=== PATIENT | male | born 1975 | race Caucasian/White ===

== ENCOUNTER 2017-06-11 13:03 | Emergency (ER) | payer MEDICAID ==
--- NOTE | 2017-06-11 13:43 | ED Physician Chart ---
ED Chief Complaint/HPI - Patient Information Date Seen:: 06/11/17 Time Seen:: 13:20 Chief Complaint:: Medical Clearance History of Present Illness:: pt brought to ER by PD for an OK to Book Medical Clearance; pt has no complaints ; pt denies recent trauma, H/As, neck pain, C/P, SOB, Abd/Flank/Back pain, urinary s/s, pelvic/hip pain, or gait changes Allergies:: Allergies Allergy/AdvReac Type Severity Reaction Status Date / Time Penicillins [PCN] AdvReac Verified 06/11/17 13:23 Vitals:: Vital Signs - 8 hr 06/11/17 06/11/17 13:23 13:31 Temp 98.2 F 98.2 F HR 90 89 RR 16 18 BP 110/62 116/62 O2 Sat % 100 98 Historian:: Patient Review:: Nurse's Note Reviewed ED Review of Systems - Review of Systems General/Constitutional: No fever, No chills, No weight loss, No weakness, No diaphoresis, No edema, No loss of appetite Skin: No skin lesions, No rash, No bruising Head: No headache, No light-headedness Eyes: No loss of vision, No pain, No diplopia ENT: No earache, No nasal drainage, No sore throat, No tinnitus Neck: No neck pain, No swelling, No thyromegaly, No stiffness, No mass noted Cardio Vascular: No chest pain, No palpitations, No PND, No orthopnea, No edema Pulmonary: No SOB, No cough, No sputum, No wheezing GI: No nausea, No vomiting, No diarrhea, No pain, No melena, No hematochezia, No constipation, No hematemesis G/U: No dysuria, No frequency, No hematuria Musculoskeletal: No bone or joint pain, No back pain, Muscle pain Endocrine: No polyuria, No polydipsia Psychiatric: No prior psych history, No depression, No anxiety, No suicidal ideation Hematopoietic: No bruising, No lymphadenopathy Allergic/Immuno: No urticaria, No angioedema Neurological: No syncope, No focal symptoms, No weakness, No paresthesia, No headache, No seizure, No dizziness, No confusion, No vertigo ED Past Medical History - Past Medical History Obtainable: Yes Past Medical History: No significant medical hx Family History: HTN Social History: Smoker, Alcohol, Illicit Drug Use, Single Surgical History: None Psychiatricy History: None Medication: Reviewed Family Medical History - Family Member Mother History Unknown: Yes ED Physical Exam - Physical Examination General/Constitutional: Awake, Well-developed, well-nourished, Alert, No distress, GCS 15, Non-toxic appearing, Ambulatory Head: Atraumatic Eyes: Lids, conjuctiva normal, PERRL, EOMI Skin: Nl inspection, No rash, No skin lesions, No ecchymosis, Well hydrated, No lymphadenopathy ENMT: External ears, nose nl, TM canals nl, Nasal exam nl, Lips, teeth, gums nl , Oropharynx nl, Tonsils nl Neck: Nontender, Full ROM w/o pain, No JVD, No nuchal rigidity, No bruit, No mass, No stridor Respiratory: Nl effort/Exclusion, Clear to Auscultation, No Wheeze/Rhonchi/Rales Cardio Vascular: RRR, No murmur, gallop, rubs, NL S1 S2 GI: No tenderness/rebounding/guarding, No organomegaly, No hernia, Normal BS's, Nondistended, No mass/bruits, No McBurney tenderness : No CVA tenderness Extremities: No tenderness or effusion, Full ROM, normal strength in all extremities, No edema, Normal digits & nails Neuro/Psych: Alert/oriented, DTR's symmetric, Normal sensory exam, Normal motor strength, Judgement/insight normal, Mood normal, Normal gait, No focal deficits Misc: Normal back, No paraspinal tenderness ED Septic Shock - . Is Septic Shock (SBP<90, OR Lactate>4 mmol\L) present?: No - <6hrs of presentation: Vital Signs: Vital Signs - 8 hr 06/11/17 06/11/17 13:23 13:31 Temp 98.2 F 98.2 F HR 90 89 RR 16 18 BP 110/62 116/62 O2 Sat % 100 98 ED Reassessment (Disposition) - Reassessment Reassessment:: pt is asymptomatic upon discharge Reassessment Condition:: Improved - Diagnosis Diagnosis:: OK to Book Medical Clearance - Aftercare/Follow up Instructions Aftercare/Follow-Up Instructions:: Counseled pt regarding lab results/diagnosis & need follow up, Refer to Discharge Instructions, Counseled pt & family regarding lab results/diagnosis & need follow up - Patient Disposition Discharge/Transfer:: [facility] Condition at Disposition:: Stable, Improved (RTER prn if existing s/s reoccur and/or get worse and/or any other new s/s occur; ACIs given for all above Dx; Refer to Psychology Tech RENAE; F/U with PMD in one day or prn; RTER prn if concerned) ED Discharge Plan - Patient Disposition Forms: [facility] Clearance
== END 2017-06-11 13:38 | disposition still patient (30) ==
LOC: ER 13:03
DX: Z02.89 Encounter for other administrative examinations (principal); F17.200 Nicotine dependence, unspecified, uncomplicated
CPT/HCPCS: Z7502

== ENCOUNTER 2017-11-02 20:40 | Emergency (ER) | payer SELFPAY ==
[2017-11-02] MEDS ORDERED: Sodium Chloride 0.9% 1,000 ML IV ONE (21:06)
[2017-11-02] MEDS ORDERED: cefTRIAXone 2 GM in Sodium Chloride 0.9% 100 ML IV ONE (21:10)
[2017-11-02 21:27] LABS: % BASOPHILS 0.3 % (0.0-2.0); % EOSINOPHILS 6.4 % (0.0-5.0); % MONOCYTES 7.6 % (2.0-10.0); % NEUTROPHILS 60.7 % (40.0-80.0); EOSINOPHILE ABSOLUTE 0.8 Th/cmm (0.1-0.4); HEMATOCRIT 49.9 % (41.0-60); HEMOGLOBIN 16.6 gm/dL (12-16); MEAN CELL VOLUME 88.2 fl (80-99); MEAN CORPUSCULAR HEMOGLOBIN 29.3 pg (26.0-30.0); MEAN CORPUSCULAR HGB CONC 33.3 pg (28.0-36.0); MEAN PLATELET VOLUME 7.2 fl; MONOCYTE ABSOLUTE 0.9 Th/cmm (0.3-1.0); NEUTROPHILE ABSOLUTE 7.1 Th/cmm (1.8-8.0); PLATELET COUNT 351 Th/cmm (150-400); RED BLOOD COUNT 5.65 Mil/cmm (4.30-5.70); RED CELL DISTRIBUTION WIDTH 12.9 % (11.5-20.0); WHITE BLOOD COUNT 11.8 Th/cmm (4.8-10.8)
[2017-11-02] MEDS ORDERED: metroNIDAZOLE 500mg/NS 100mL 500 MG/100 ML BAG IV ONE ×2 (21:28→22:21)
[2017-11-02] MEDS ORDERED: Pantoprazole 80 MG in Sodium Chloride 0.9% 100 ML IV ONE (21:29)
[2017-11-02 21:50] LABS: ALB/GLOB RATIO 1.5 (1.0-1.8); ALKALINE PHOSPHATASE 66 U/L (34-104); AMYLASE SERUM 21 U/L (29-103); ANION GAP 8.1 (7.0-16.0); BILIRUBIN,TOTAL 0.3 mg/dL (0.3-1.0); BUN - UREA NITROGEN 15 mg/dL (7-25); CALCIUM SERUM 9.5 mg/dL (8.6-10.3); CARBON DIOXIDE 28.3 mEq/L (21.0-31.0); CHLORIDE 101 mEq/L (98-107); CREATININE - SERUM 0.8 mg/dL (0.7-1.3); GFR AFRICAN-AMERICAN > 60.0 ml/min (>90); GFR NON AFRICAN-AMERICAN > 60.0 ml/min; GLUCOSE 153 mg/dL (70-105); LIPASE 39 U/L (11-82); MAGNESIUM 2.3 mg/dL (1.9-2.7); POTASSIUM SERUM 4.4 mEq/L (3.5-5.1); SGOT 19 U/L (13-39); SGPT/ALT 23 U/L (7-52); SODIUM SERUM 133 mEq/L (136-145); TOTAL PROTEIN,SERUM 6.6 gm/dL (6.0-8.3)
[2017-11-02] MEDS ORDERED: Acetaminophen 500 MG TAB PO ONE (23:17)
[2017-11-02] MEDS ORDERED: Acetaminophen 500 MG TAB ONE (23:46)
--- NOTE | 2017-11-03 00:29 | Transfer Summary ---
DATE OF TRANSFER: ADDENDUM CODE: Full code. A 41-year-old male patient who is in bed #1. We got the results of the lab; white count is slightly high 11.8, hemoglobin 16.6, hematocrit 49.9, platelet count is 351, neutrophils 60.7, lymphocytes is 25, and eosinophil is 64%. Electrolytes show sodium 133, potassium 4.4, chloride 101, carbon dioxide 28.3, BUN is 15, creatinine 0.8, and glucose 153. Magnesium is 2.3. Troponin and BNP, etc. are all within normal limits. Albumin is 4, globulin is normal. Amylase is 21 and lipase is 39. Ultrasound of the gallbladder and the bile duct are within normal limits. There is no thickening of the gallbladder seen. Gallbladder does not have any stones. I saw it, he is still doing it, but the classical findings is negative for acute cholecystitis, most likely the patient has acute gastritis, GERD and hence the patient can be sent home on p.o. antibiotics and the patient will be sent home on p.o. PPI medication and Tylenol for pain and not to take any Advil, Motrin, etc. FINAL DIAGNOSES: Epigastric pain and the reason for the epigastric pain in all probability is secondary to acute gastritis because the patient has been taking a lot of Aleve, a lot of Motrin, and has a lot of headaches from time to time. The other diagnosis that the patient has is back pain, ____ is allergic to PENICILLIN. The pain is almost gone at the present moment. We will give him prescription of all these medications: Protonix 40 mg p.o. twice a day. No Aleve and no Motrin to be taken. Tylenol for headache and pain. The patient needs to be taking Reglan 10 mg 3 times a day and a patient can take Pepto-Bismol 2-3 times a day and the patient does not have any acute cholecystitis. So for mild infection, we can give the patient some ampicillin capsule that is good for Helicobacter pylori. We can give the patient some Flagyl also, if there is any evidence of that, will help the patient also. JOB# [id number]
--- NOTE | 2017-11-03 08:33 | Diagnostic Imaging Report ---
Abdominal ultrasound HISTORY: Pain The exam of the liver demonstrates a slightly heterogeneous parenchyma. No focal lesions. Significance should be correlated with liver function test. There is a distended gallbladder. No intraluminal abnormalities. No definite calculi. No biliary dilatation. The pancreas cannot be seen due to bowel gas. An approximate 1.9 cm sonolucent lesion is noted in the upper pole of the right kidney consistent with a cyst. An approximate 2.8 cm sonolucent lesion is noted in the lower pole the left kidney consistent with a cyst. No hydronephrosis. No other retroperitoneal or intra-abdominal abnormalities. IMPRESSION: 1. Somewhat limited exam due to bowel gas 2. No acute abnormalities 3. Findings consistent with bilateral renal cysts.
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
== END 2017-11-03 00:45 | disposition home or self-care (01) ==
LOC: ER 20:40
DX: R10.13 Epigastric pain (principal); M54.5 Low back pain; K82.9 Disease of gallbladder, unspecified
CPT/HCPCS: 99285; 96365; 96368; 96372; 93005; 76700; 84484; 83880; 36415; 83605; 86141; 85025; 82150; 83690; 83735; 80053; 87040 ×2; C9113; J1885; J0696; 87086-90; 90799; J7030; Z7610

== ENCOUNTER 2018-02-10 06:21 | Emergency (ER) | payer SELFPAY ==
--- NOTE | 2018-02-10 08:39 | Diagnostic Imaging Report ---
Head CT without intravenous contrast Indication: Trauma Comparison: None Technique: Axial images were obtained from the vertex to the skull base without IV contrast. Coronal reconstructions were made. Total DLP: 682, CTDI33 FINDINGS: Images of the brain obtained without contrast demonstrate punctate high density seen along the right temporal region measuring 3 mm (image 18, series 2). The stewart-white matter differentiation is preserved. The ventricles and basal cisterns are patent. No mass effect or midline shift. No evidence of a skull fracture or focal soft tissue swelling. There is partial opacification left sphenoid sinus additional mucosal thickening of paranasal sinuses are also noted. IMPRESSION: 3 mm high density seen along the right temporal region. This is probably a calcification and may be due to choroid plexus calcifications. Otherwise no evidence of an acute hemorrhage. No evidence of a skull fracture. Mild sinus disease greatest within the left sphenoid sinus.
--- NOTE | 2018-02-10 08:42 | Diagnostic Imaging Report ---
CT cervical spine without IV contrast HISTORY: Trauma COMPARISON: None Technique: Axial images were obtained from the skull base to the upper thoracic spine without IV contrast. Multiplanar reconstructions were made. Total DLP: 722, CTDI44 FINDINGS: Images of the spine cervical spine obtained without contrast demonstrate no evidence of a fracture or subluxation. The disc spaces are preserved. Mild degenerative changes are seen greatest at C6/C7 with disc osteophytic spurring at this level including anterior and posterior disc osteophyte complexes causing mild spinal canal narrowing. No prevertebral soft tissue swelling. The lung apices are clear. IMPRESSION: No evidence of an acute fracture. Mild degenerative changes, greatest within the lower cervical spine.
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
== END 2018-02-10 09:27 | disposition home or self-care (01) ==
LOC: ER 06:21
DX: S42.002A Fracture of unspecified part of left clavicle, initial encounter for closed fracture (principal); S46.912A Strain of unspecified muscle, fascia and tendon at shoulder and upper arm level, left arm, initial encounter; S16.1XXA Strain of muscle, fascia and tendon at neck level, initial encounter; I10 Essential (primary) hypertension; Z88.0 Allergy status to penicillin; V29.9XXA Motorcycle rider (driver) (passenger) injured in unspecified traffic accident, initial encounter; Y93.55 Activity, bike riding; Y92.410 Unspecified street and highway as the place of occurrence of the external cause; Y99.8 Other external cause status
CPT/HCPCS: 70450-TC; 72125-TC; 73000-TC-LT; 73030-TC-LT; Z7502

== ENCOUNTER 2019-04-06 16:30 | Emergency (ER) | payer MEDICAID ==
--- NOTE | 2019-04-06 18:32 | ED Physician Chart ---
ED Chief Complaint/HPI - Patient Information Date Seen:: 04/06/19 Time Seen:: 16:40 Chief Complaint:: Headaches History of Present Illness:: onset x one month of intermittent, dull, frontal and parietal H/As; no report of /pt denies trauma, LOC, ALOC, AMS, decreased activity, visual or gait changes, weakness, dizziness, paresthesias, vertigo, E/A, S/T, neck pain, SIs, C/P, SOB, Abd. Pain, A/N/V/D/C, fever, chills, or urinary s/s; pt is eating and urinating well; pt last urinated one hour [employer]; pt tried no pain medications Allergies:: Allergies Allergy/AdvReac Type Severity Reaction Status Date / Time Penicillins [PCN] AdvReac Verified 02/10/18 06:30 Vitals:: Vital Signs - 8 hr 04/06/19 04/06/19 16:40 18:20 Temp 97.7 F 97.8 F HR 81 81 RR 17 14 BP 137/64 111/69 O2 Sat % 95 96 Historian:: Patient, Family Member Review:: Nurse's Note Reviewed, Old Chart Reviewed ED Review of Systems - Review of Systems General/Constitutional: No fever, No chills, No weight loss, No weakness, No diaphoresis, No edema, No loss of appetite Skin: No skin lesions, No rash, No bruising Head: Headache, No light-headedness Eyes: No loss of vision, No pain, No diplopia ENT: No earache, No nasal drainage, No sore throat, No tinnitus Neck: No neck pain, No swelling, No thyromegaly, No stiffness, No mass noted Cardio Vascular: No chest pain, No palpitations, No PND, No orthopnea, No edema Pulmonary: No SOB, No cough, No sputum, No wheezing GI: No nausea, No vomiting, No diarrhea, No pain, No melena, No hematochezia, No constipation, No hematemesis G/U: No dysuria, No frequency, No hematuria, No nacturia Musculoskeletal: No bone or joint pain, No back pain, No muscle pain Endocrine: No polyuria, No polydipsia Psychiatric: Prior psych history, No depression, Anxiety, No suicidal ideation, No homicidal ideation, No auditory hallucination, No visual hallucination Hematopoietic: No bruising, No lymphadenopathy Allergic/Immuno: No urticaria, No angioedema Neurological: No syncope, No focal symptoms, No weakness, No paresthesia, Headache, No seizure, No dizziness, No confusion, No vertigo ED Past Medical History - Past Medical History Obtainable: Yes Past Medical History: No significant medical hx Family History: None Social History: Non Smoker, No Alcohol, No Drug Use, Surgical History: None Psychiatricy History: Other (Anxiety) Medication: Reviewed Family Medical History - Family Member Mother History Unknown: Yes ED Physical Exam - Physical Examination General/Constitutional: Awake, Well-developed, well-nourished, Alert, No distress, GCS 15, Non-toxic appearing, Ambulatory Head: Atraumatic Eyes: Lids, conjuctiva normal, PERRL, EOMI Other Eyes comments:: PERRLA; Fundi: benign; EOMs: WNL Skin: Nl inspection, No rash, No skin lesions, No ecchymosis, Well hydrated, No lymphadenopathy ENMT: External ears, nose nl, TM canals nl, Nasal exam nl, Lips, teeth, gums nl , Oropharynx nl, Tonsils nl Other ENMT comments:: TMJs: WNL Neck: Nontender, Full ROM w/o pain, No JVD, No nuchal rigidity, No bruit, No mass, No stridor Other Neck comments:: supple; no meningeal signs; no cervical tenderness; no bruits Respiratory: Nl effort/Exclusion, Clear to Auscultation, No Wheeze/Rhonchi/Rales Cardio Vascular: RRR, No murmur, gallop, rubs, NL S1 S2, Carotid/Femoral/Distal pulses equal bilaterally GI: No tenderness/rebounding/guarding, No organomegaly, No hernia, Normal BS's, Nondistended, No mass/bruits, No McBurney tenderness, Rectum exam nl Other GI comments:: no pulsatile masses : No CVA tenderness Extremities: No tenderness or effusion, Full ROM, normal strength in all extremities, No edema, Normal digits & nails Neuro/Psych: Alert/oriented, DTR's symmetric, Normal sensory exam, Normal motor strength, Judgement/insight normal, Mood normal, Normal gait, No focal deficits Other Neuro/Psych comments:: no focal signs Misc: Normal back, No paraspinal tenderness ED Labs/Radiology/EKG Results - Radiology Results Comments:: NAD ED Septic Shock - . Is Septic Shock (SBP<90, OR Lactate>4 mmol\L) present?: No - <6hrs of presentation: Vital Signs: Vital Signs - 8 hr 04/06/19 04/06/19 16:40 18:20 Temp 97.7 F 97.8 F HR 81 81 RR 17 14 BP 137/64 111/69 O2 Sat % 95 96 ED Reassessment (Disposition) - Reassessment Reassessment:: pt tolerated po fluids well in ER; pt is asymptomatic upon discharge Reassessment Condition:: Improved - Diagnosis Diagnosis:: Headaches; Vascular Cephalgia; Anxiety; Tension Headaches; Benign Headaches - Aftercare/Follow up Instructions Aftercare/Follow-Up Instructions:: Counseled pt regarding lab results/diagnosis & need follow up, Refer to Discharge Instructions, Counseled pt & family regarding lab results/diagnosis & need follow up - Patient Disposition Discharge/Transfer:: Home Condition at Disposition:: Stable, Improved (X-Rays Instructions; RTER prn if existing s/s reoccur and/or get worse and/or any other new s/s occur; ACIs given for all above Dx; Refer to Neurologist/Psychiatrist/Dynamo Repairer RENAE; F/U with PMD in one day or prn; RTER prn if concerned)
--- NOTE | 2019-04-07 09:34 | Diagnostic Imaging Report ---
Head CT without intravenous contrast Indication: Headache Comparison: Head CT on 02/10/2018 Technique: Axial images were obtained from the vertex to the skull base without IV contrast. Coronal reconstructions were made. Total DLP: 789, CTDI40 FINDINGS: Images of the brain obtained without contrast demonstrate no acute hemorrhage. No mass lesions identified. The ventricles and basal cisterns are patent. The stewart-white matter differentiation is preserved. There is no mass effect or midline shift. No skull fractures identified. No soft tissue swelling. There is mucosal thickening of the paranasal sinuses. IMPRESSION: No acute intracranial abnormality.
== END 2019-04-06 18:25 | disposition home or self-care (01) ==
LOC: ER 16:30
DX: G44.1 Vascular headache, not elsewhere classified (principal); F41.9 Anxiety disorder, unspecified; G44.209 Tension-type headache, unspecified, not intractable; Z88.0 Allergy status to penicillin
CPT/HCPCS: 70450-TC

== ENCOUNTER 2019-05-01 23:34 | Emergency (ER) | payer MEDICAID ==
[2019-05-02 00:20] LABS: % BASOPHILS 0.3 % (0.0-2.0); % EOSINOPHILS 4.5 % (0.0-5.0); % LYMPHOCYTES 32.7 % (20.0-50.0); % MONOCYTES 6.2 % (2.0-10.0); % NEUTROPHILS 56.3 % (40.0-80.0); EOSINOPHILE ABSOLUTE 0.5 Th/cmm (0.1-0.4); HEMATOCRIT 47.8 % (41.0-60); HEMOGLOBIN 16.6 gm/dL (12-16); LYMPHOCYTE ABSOLUTE 3.9 Th/cmm (1.5-3.0); MEAN CELL VOLUME 86.7 fl (80-99); MEAN CORPUSCULAR HEMOGLOBIN 30.1 pg (26.0-30.0); MEAN CORPUSCULAR HGB CONC 34.7 pg (28.0-36.0); MONOCYTE ABSOLUTE 0.7 Th/cmm (0.3-1.0); NEUTROPHILE ABSOLUTE 6.9 Th/cmm (1.8-8.0); PLATELET COUNT 364 Th/cmm (150-400); RED BLOOD COUNT 5.51 Mil/cmm (4.30-5.70); RED CELL DISTRIBUTION WIDTH 12.4 % (11.5-20.0)
--- NOTE | 2019-05-02 00:28 | ED Physician Chart ---
ED Chief Complaint/HPI - Patient Information Date Seen:: 05/02/19 Time Seen:: 00:17 Chief Complaint:: right sided abdominal pain History of Present Illness:: this is a 43 yo male who is concerned about pain in his right upper quadrant abdominal pain for one week. he denies nausea, vomiting and diarrhea. he denies fever, chills, sweats and blood in his urine. he states that he had a bout of renal stones in the past. he denies having a problem with his gallbladder. he denies having a pancreas problem. he denies alcohol and drug abuse. he had pneumonia about 20 yrs ago. the pain is 5/10 wirse with coughing and moving around. Allergies:: Allergies Allergy/AdvReac Type Severity Reaction Status Date / Time Penicillins [PCN] AdvReac Verified 02/10/18 06:30 Vitals:: Vital Signs - 8 hr 05/01/19 23:40 Temp 98.7 F HR 91 RR 18 BP 138/88 O2 Sat % 96 Historian:: Patient Review:: Nurse's Note Reviewed, Old Chart Reviewed ED Review of Systems - Review of Systems General/Constitutional: No fever, No chills, No weight loss, No weakness, No diaphoresis, No edema, No loss of appetite Skin: No skin lesions, No rash, No bruising Head: No headache, No light-headedness Eyes: No loss of vision, No pain, No diplopia ENT: No earache, No nasal drainage, No sore throat, No tinnitus Neck: No neck pain, No swelling, No thyromegaly, No stiffness, No mass noted Cardio Vascular: No chest pain, No palpitations, No PND, No orthopnea, No edema Pulmonary: No SOB, No cough, No sputum, No wheezing GI: No nausea, No vomiting, No diarrhea, Pain (right upper quadrant abdominal pain), No melena, No hematochezia, No constipation, No hematemesis G/U: No dysuria, No frequency, No hematuria Musculoskeletal: No bone or joint pain, No back pain, No muscle pain Endocrine: No polyuria, No polydipsia Psychiatric: No prior psych history, No depression, No anxiety, No suicidal ideation Hematopoietic: No bruising, No lymphadenopathy Allergic/Immuno: No urticaria, No angioedema Neurological: No syncope, No focal symptoms, No weakness, No paresthesia, No headache, No seizure, No dizziness, No confusion, No vertigo ED Past Medical History - Past Medical History Obtainable: Yes Past Medical History: HTN, Other (prostate problem, gastritis) Family History: None Social History: Non Smoker, No Alcohol, No Drug Use, Single Surgical History: None Psychiatricy History: None Medication: Reviewed Family Medical History - Family Member Mother History Unknown: Yes ED Physical Exam - Physical Examination General/Constitutional: Awake, Well-developed, well-nourished, Alert, No distress, GCS 15, Non-toxic appearing, Ambulatory Head: Atraumatic Eyes: Lids, conjuctiva normal, PERRL, EOMI Skin: Nl inspection, No rash, No skin lesions, No ecchymosis, Well hydrated, No lymphadenopathy ENMT: External ears, nose nl, Nasal exam nl, Lips, teeth, gums nl Neck: Nontender, Full ROM w/o pain, No JVD, No nuchal rigidity, No bruit, No mass, No stridor Respiratory: Nl effort/Exclusion, Clear to Auscultation, No Wheeze/Rhonchi/Rales Cardio Vascular: RRR, No murmur, gallop, rubs, NL S1 S2 GI: No organomegaly, No hernia, Normal BS's, Nondistended, No mass/bruits, No McBurney tenderness Other GI comments:: the abdomen is distended and tender in the right lower quadrant. : No CVA tenderness Extremities: No tenderness or effusion, Full ROM, normal strength in all extremities, No edema, Normal digits & nails Neuro/Psych: Alert/oriented, DTR's symmetric, Normal sensory exam, Normal motor strength, Judgement/insight normal, Mood normal, Normal gait, No focal deficits Misc: Normal back, No paraspinal tenderness ED Labs/Radiology/EKG Results - Lab Results Results: Laboratory Results - last 24 hr 05/01/19 05/01/19 05/02/19 00:05 00:05 00:07 WBC 12.0 H RBC 5.51 Hgb 16.6 Hct 47.8 MCV 86.7 MCH 30.1 H MCHC Differential 34.7 RDW 12.4 Plt Count 364 MPV 7.4 Neutrophils % 56.3 Lymphocytes % 32.7 Monocytes % 6.2 Eosinophils % 4.5 Basophils % 0.3 Sodium 138 Potassium 3.7 Chloride 104 Carbon Dioxide 23.2 Anion Gap 14.5 BUN 15 Creatinine 0.9 Est GFR ( Amer) > 60.0 Est GFR (Non-Af Amer) > 60.0 BUN/Creatinine Ratio 16.7 Glucose 160 H Calcium 8.7 Total Bilirubin 0.4 AST 17 ALT 26 Alkaline Phosphatase 87 Troponin I < 0.01 L Total Protein 6.9 Albumin 4.2 Globulin 2.7 Albumin/Globulin Ratio 1.6 Amylase 18 L - Radiology Results Results: ct scan of the abdomen = nad ED Assessment - Assessment General Assessment: gastritis ED Septic Shock - . Is Septic Shock (SBP<90, OR Lactate>4 mmol\L) present?: No - <6hrs of presentation: Vital Signs: Vital Signs - 8 hr 05/01/19 23:40 Temp 98.7 F HR 91 RR 18 BP 138/88 O2 Sat % 96 ED Reassessment (Disposition) - Reassessment Reassessment Condition:: Improved - Diagnosis Diagnosis:: gastritis - Aftercare/Follow up Instructions Aftercare/Follow-Up Instructions:: Counseled pt regarding lab results/diagnosis & need follow up, Refer to Discharge Instructions, Counseled pt & family regarding lab results/diagnosis & need follow up - Patient Disposition Discharge/Transfer:: Home Condition at Disposition:: Improved
[2019-05-02 00:36] LABS: ALB/GLOB RATIO 1.6 (1.0-1.8); ALBUMIN 4.2 gm/dL (4.2-5.5); ALKALINE PHOSPHATASE 87 U/L (34-104); AMYLASE SERUM 18 U/L (29-103); ANION GAP 14.5 (7.0-16.0); BILIRUBIN,TOTAL 0.4 mg/dL (0.3-1.0); BUN - UREA NITROGEN 15 mg/dL (7-25); CALCIUM SERUM 8.7 mg/dL (8.6-10.3); CARBON DIOXIDE 23.2 mEq/L (21.0-31.0); CHLORIDE 104 mEq/L (98-107); CREATININE - SERUM 0.9 mg/dL (0.7-1.3); GFR AFRICAN-AMERICAN > 60.0 ml/min (>90); GFR NON AFRICAN-AMERICAN > 60.0 ml/min; GLUCOSE 160 mg/dL (70-105); POTASSIUM SERUM 3.7 mEq/L (3.5-5.1); SGOT 17 U/L (13-39); SGPT/ALT 26 U/L (7-52); SODIUM SERUM 138 mEq/L (136-145); TOTAL PROTEIN,SERUM 6.9 gm/dL (6.0-8.3)
[2019-05-02] MEDS ORDERED: Potassium Chloride Elixir 20 mEq /15 mL UDC PO ONE (01:13)
[2019-05-02] MEDS ORDERED: Potassium Chloride Elixir 20 mEq /15 mL UDC ONE (01:16)
[2019-05-02 01:28] LABS: URINE SOURCE CLEAN C
[2019-05-02 01:31] LABS: URINE BILIRUBIN NEGATIVE (NEGATIVE); URINE BLOOD NEGATIVE (NEGATIVE); URINE GLUCOSE (UA) NEGATIVE (NEGATIVE); URINE KETONE NEGATIVE (NEGATIVE); URINE LEUKOCYTE ESTERASE NEGATIVE (NEGATIVE); URINE NITRATE NEGATIVE (NEGATIVE); URINE PH 6.5 (4.6 - 8.0); URINE PROTEIN NEGATIVE (NEGATIVE); URINE UROBILINOGEN 0.2 E.U./dL (0.2 - 1.0)
[2019-05-02 01:32] LABS: URINE CLARITY CLEAR (CLEAR); URINE COLOR YELLOW
[2019-05-02 01:33] LABS: URINE MICROSCOPIC INDICATED? NO
--- NOTE | 2019-05-02 09:50 | Diagnostic Imaging Report ---
Exam: CT examination abdomen pelvis. HISTORY: Right-sided pain Total DLP equals 831 CTDI equals 16.6 FINDINGS: Multiple views of the section of the abdomen pelvis obtained without the demonstration coccygeal No prior studies available comparison. The study demonstrates normal aeration of lung parenchyma the bases. The liver demonstrates that infiltration. The spleen is intact. Images is normal. The kidneys demonstrate no evidence of obstructive uropathy or nephrolithiasis. Small right renal cyst. The adrenal glands intact. No free fluid is noted. The appendix is normal. There is no evidence of diverticular disease of diverticulitis. The urinary bladder is intact. Large amount of fecal content in the rectum. IMPRESSION: essentially unremarkable exam the abdomen.
== END 2019-05-02 01:48 | disposition home or self-care (01) ==
LOC: ER 23:34
DX: K29.70 Gastritis, unspecified, without bleeding (principal); I10 Essential (primary) hypertension; Z88.0 Allergy status to penicillin
CPT/HCPCS: 99284; 84484; 36415 ×2; 85025; 81003; 82150; 83690; 80053; 87040 ×2; 74176; 96372 ×2; J1885; J0696; J2001